=== PATIENT | male | born 1995 | race Caucasian/White ===

== ENCOUNTER 2021-06-18 18:05 | Emergency (ER) | payer OTHER, SELFPAY ==
--- NOTE | 2021-06-18 18:15 | ECG_ITS ---
Test Reason : CHEST PAIN Blood Pressure : / mmHG Vent. Rate : 059 BPM Atrial Rate : 059 BPM P-R Int : 140 ms QRS Dur : 090 ms QT Int : 408 ms P-R-T Axes : 006 060 031 degrees QTc Int : 403 ms Sinus bradycardia RSR' or QR pattern in V1 suggests right ventricular conduction delay Otherwise normal ECG Referred By: Generic ED Physician Electronically Signed By:DIEGO PANDEY MD
[2021-06-18 18:39] VITALS: BP 132/46; PULSE 70; RESP 16; TEMP 36.4; O2SAT 97; BMI 26.5
== END 2021-06-18 21:26 | disposition left against medical advice (07) ==
PROVIDERS: Emergency Provider Emergency Medicine
DX: R07.89 Other chest pain (principal)
CPT/HCPCS: 93005; 99283

== ENCOUNTER 2022-03-12 03:51 | Emergency (ER) | payer OTHER, SELFPAY ==
[2022-03-12 04:04] VITALS: BP 134/88; PULSE 89; RESP 18; TEMP 36.8; O2SAT 97; BMI 27.2
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
[2022-03-12] MEDS: Lidocaine HCl 1 % MPF 5 ML VIAL INFILTRATI (04:34)
== END 2022-03-12 05:11 | disposition home or self-care (01) ==
PROVIDERS: Emergency Provider Internal Medicine
DX: S51.011A Laceration without foreign body of right elbow, initial encounter (principal); W25.XXXA Contact with sharp glass, initial encounter; Y93.9 Activity, unspecified; Y92.9 Unspecified place or not applicable; Y99.9 Unspecified external cause status
CPT/HCPCS: 12002; 99284

== ENCOUNTER 2024-06-18 05:50 | Emergency (ER) | payer OTHER, SELFPAY ==
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
[2024-06-18 05:54] VITALS: BP 135/93; PULSE 89; RESP 18; TEMP 36.4; O2SAT 97; BMI 27.7
[2024-06-18] MEDS: Acetaminophen 325 MG TABLET 975 MG PO (06:26)
[2024-06-18] MEDS: Ibuprofen 600 MG TABLET PO (06:26)
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
[2024-06-18 11:22] VITALS: BP 127/73; PULSE 82; RESP 14; TEMP 36.6; O2SAT 98
== END 2024-06-18 11:23 | disposition home or self-care (01) ==
PROVIDERS: Emergency Provider Emergency Medicine
DX: S13.4XXA Sprain of ligaments of cervical spine, initial encounter (principal); S16.1XXA Strain of muscle, fascia and tendon at neck level, initial encounter; S80.02XA Contusion of left knee, initial encounter; V43.52XA Car driver injured in collision with other type car in traffic accident, initial encounter; W22.12XA Striking against or struck by front passenger side automobile airbag, initial encounter; M25.512 Pain in left shoulder; M54.2 Cervicalgia; M25.562 Pain in left knee; Y92.413 State road as the place of occurrence of the external cause; Y93.9 Activity, unspecified; Y99.9 Unspecified external cause status; F12.90 Cannabis use, unspecified, uncomplicated
CPT/HCPCS: 70450; 72125; 73030; 73562; 99284

== ENCOUNTER 2024-12-13 04:24 | Emergency (ER) | payer SELFPAY ==
--- NOTE | 2024-12-13 | ECG_ITS ---
Test Reason : CP Blood Pressure : */* mmHG Vent. Rate : 88 BPM Atrial Rate : 88 BPM P-R Int : 138 ms QRS Dur : 92 ms QT Int : 368 ms P-R-T Axes : 40 31 4 degrees QTcB Int : 445 ms Normal sinus rhythm Normal ECG When compared with ECG of 18-Jun-2021 18:18, Vent. rate has increased by 29 bpm Referred By: Generic ED Physician Electronically Signed By: AYO ZEPEDA MD
--- NOTE | ~2024-12-13 | XR_ITS ---
CLINICAL HISTORY: cp 1 view chest x-ray Comparison: None Findings: No consolidation or effusion. Heart size is normal. No acute fracture. IMPRESSION: No acute cardiopulmonary abnormality. This document has been electronically signed by: Elvin Hernández on 12/13/2024 05:49:44
[2024-12-13 05:30] LABS: MANUAL DIFF FLAG NO
[2024-12-13 05:43] LABS: Alanine Aminotransferase 105 U/L (0-40); Albumin Level 4.4 g/dL (3.5-5.0); Alkaline Phosphatase 87 U/L (39-117); Anion Gap 17 (12-20); Aspartate Amino Transferase 67 U/L (5-37); Bilirubin Total 0.3 mg/dL (0.0-1.0); Blood Urea Nitrogen 8 mg/dL (9-16); Calcium 8.8 mg/dL (8.4-10.2); Carbon Dioxide 20 mmol/L (22-29); Chloride 107 mmol/L (96-108); Estimated Glomerular Filt Rate > 60; Glucose Random 117 mg/dL (60-115); Potassium 3.8 mmol/L (3.3-5.1); Sodium 140 mmol/L (135-145); Total Protein 8.2 g/dL (6.5-8.0); Troponin-I High Sensitivity < 2.7 ng/L (<3.5-35.0)
[2024-12-13 05:46] LABS: Influenza A PCR NEGATIVE (Negative); Influenza B PCR NEGATIVE (Negative); Resp Syncy Virus RNA Qual PCR NEGATIVE (Negative); SARS COV2 PCR INHOUSE NEGATIVE (Negative)
[2024-12-13 05:50] LABS: Basophils Percent Auto 0.4 % (0-2); Eosinophils Absolute Auto 0.1 X10*3/uL (0.0-0.4); Hematocrit 40.1 % (42.0-52.0); Hemoglobin 14.3 g/dl (14.0-18.0); Imm Gran Abs Auto 0.02 X10*3/uL (0.00-0.03); Imm Gran Pct Auto 0.3 % (0.0-0.4); Lymphocytes Absolute Auto 2.4 X10*3/uL (1.2-4.9); Lymphocytes Percent Auto 34.4 % (20-40); Mean Corpuscular HGB Conc 35.7 g/dl (31.0-36.0); Mean Corpuscular Hemoglobin 32.1 pg (27.0-33.0); Mean Corpuscular Volume 89.9 fL (80.0-98.0); Mean Platelet Volume 10.1 fL (9.4-12.4); Monocytes Absolute Auto 0.6 X10*3/uL (0.1-1.2); Monocytes Percent Auto 8.3 % (2-11); Neutrophils Absolute Auto 3.9 x10*3/uL (2.0-8.3); Neutrophils Percent Auto 55.6 % (45-73); Platelet Count 230 X10*3/uL (160-400); Red Blood Count 4.46 X10*6/uL (4.60-5.80); Red Cell Distribution Width 12.4 % (11.0-16.0)
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
[2024-12-13 06:26] VITALS: BP 130/91; PULSE 75; RESP 20; TEMP 36.7; O2SAT 99
--- NOTE | 2024-12-13 06:51 | ED_ITS ---
HPI - Chest Pain General Chief Complaint: Chest Pain Stated Complaint: chest pain Time Seen by Provider: 12/13/24 06:47 Source: patient and old records reviewed Mode of arrival: ambulatory Limitations: no limitations History of Present Illness ED Provider: DIEGO GOLDMAN narrative: 29 yo male with PMH of costochondritis reports 3 days of intermittent chest wall pain hurts to move and touch. No cough, URI, dyspnea, no nausea. [place] off and weak tonight. Has had costochondritis in the past. He has no fevers, IVDA hx, he has not traveled or had a procedure. He does have a PCP. No prior hx of CAD. He has not taken any medications for it. MD complaint: chest pain Onset (ago): day(s) (3) Timing of current episode: episodic Prior episodes: Yes Onset: during rest Pain location: substernal Pain radiation: none Severity: moderate Quality: aching Relieving factors: nothing Exacerbating factors: palpation and movement Context: other Treatment prior to arrival: none Related Data Previous Rx's ?Medication ?Instructions ?Recorded polymyxin B sulfate 10,000 1 drp ophthalmic (eye) QID 5 days 02/01/23 unit-trimethoprim 1 mg/mL eye drops #10 mL acetaminophen 500 mg tablet 500 - 1,000 mg (1 - 2 x 500 mg) PO 06/18/24 (Tylenol Extra Strength) QID PRN pain #30 tabs cyclobenzaprine 10 mg tablet 10 mg PO TID PRN muscle spasm #12 06/18/24 tabs ibuprofen 600 mg tablet 600 mg PO Q6H PRN pain #30 tabs 06/18/24 lidocaine 4 % topical patch 1 patch topical DAILY #30 ea 06/18/24 cyclobenzaprine 10 mg tablet 10 mg PO TID PRN muscle spasm #20 12/13/24 tabs Allergies Allergy/AdvReac Type Severity Reaction Status Date / Time No Known Allergies Allergy Verified 06/18/24 05:58 [No Known Allergies*] Review of Systems 2 Review of Systems: Constitutional : No Weight loss, No Fever, No Chills ENT/Mouth : No sore throat, No Rhinorrhea Eyes: No Eye Pain, No Swelling Cardiovascular : pos Chest Pain, no SOB, no Dyspnea on Exertion, No Orthopnea, No Edema, No Palpitations Respiratory : No Cough, No Sputum Gastrointestinal : no Nausea, No Vomiting, No Diarrhea, No abdominal Pain, No Hematochezia, No Melena Genitourinary : No Dysuria, No Urinary Frequency Musculoskeletal : No joint pain, No Myalgias, No Joint Swelling Skin : No Skin Lesions, No rash Neuro : No Weakness, No Numbness, pos Dizziness, No Headache All other systems reviewed and are negative [facility] Past Medical History Attestation statement: The following information was validated with the patient. Source: old records reviewed Medical History Acute costochondritis Social History Social History Alcohol intake: current Alcohol intake frequency: holidays/special occasions only Smoked in Last 30 Days: No Use of substances other than those prescribed or required for medical reasons: Yes Substance Use Type: Marijuana Advance Directives: No Advance Directives Information Provided: Yes Do you have a plan to hurt others: No Plan Physical Exam 2 Vital Signs: Vital Signs: Last Vital Signs Temp 98.0 F 12/13/24 06:26 Pulse 75 12/13/24 06:26 Resp 20 12/13/24 06:26 BP 130/91 H 12/13/24 06:26 Pulse Ox 99 12/13/24 06:26 O2 Del Method Room Air 12/13/24 06:26 Appearance: Alert. Oriented X3. No acute distress. Eyes: Pupils equal, round and reactive to light. ENT: Pharynx normal. Neck: Normal inspection. Neck supple. CVS: Normal heart rate and rhythm. Pulses normal. Chest wall: ttp along costochondral border Respiratory: No respiratory distress. Breath sounds normal. Abdomen: Soft and nontender. Skin: Skin warm and dry. Normal skin color. Normal skin turgor. Extremities: No lower extremity edema. No calf ttp Neuro: Oriented X 3. No motor deficit. No sensory deficit. CN2-12 intact Medical Decision Making Medical Decision Making MDM Narrative: 29 yo male with PMH of costochrondritis who presents with reproduceable CWP x 3 days. NO travel, no URI symptoms, PERC negative, distal pulses intact at this time seems MSK in nature - doubt VTE, normal pulses and resting comfortably doubt dissection - at this time labs, EKG, trop, CXR if negative stable for DC Differential Diagnosis Differential Diagnoses: The differential diagnosis associated with the presentation includes MSk pain, costochondritis, atypical chest pain Admission/Observation Consideration of admission/observation: Escalation of care including admission/observation considered work up negative stable for DC Lab Data MDM Lab Attestation statement: I reviewed the patient's lab results. mild bump in LFTs 12/13/24 04:28 12/13/24 04:28 Labs: Lab Results 12/13/24 Range/Units 04:28 WBC 7.0 (4.8-10.8) X10*3/uL RBC 4.46 L (4.60-5.80) X10*6/uL Hgb 14.3 (14.0-18.0) g/dl Hct 40.1 L (42.0-52.0) % MCV 89.9 (80.0-98.0) fL MCH 32.1 (27.0-33.0) pg MCHC 35.7 (31.0-36.0) g/dl RDW 12.4 (11.0-16.0) % Plt Count 230 (160-400) X10*3/uL MPV 10.1 (9.4-12.4) fL Immature Gran % (Auto) 0.3 (0.0-0.4) % Neut % (Auto) 55.6 (45-73) % Lymph % (Auto) 34.4 (20-40) % [place] % (Auto) 8.3 (2-11) % Eos % (Auto) 1.0 (0-4) % Baso % (Auto) 0.4 (0-2) % Lymph # (Auto) 2.4 (1.2-4.9) X10*3/uL [place] # (Auto) 0.6 (0.1-1.2) X10*3/uL Eos # (Auto) 0.1 (0.0-0.4) X10*3/uL Baso # (Auto) 0.0 (0.0-0.2) X10*3/uL Abs Immat Gran (auto) 0.02 (0.00-0.03) X10*3/uL Absolute Neuts (auto) 3.9 (2.0-8.3) x10*3/uL Absolute Nucleated RBC 0.000 (0.0-0.012) X10*3/uL Nucleated RBC % (auto) 0.0 (0.0-0.2) /100WBC Sodium 140 (135-145) mmol/L Potassium 3.8 (3.3-5.1) mmol/L Chloride 107 (96-108) mmol/L Carbon Dioxide 20 L (22-29) mmol/L Anion Gap 17 (12-20) BUN 8 L (9-16) mg/dL Creatinine 0.72 (0.5-1.4) mg/dL Estim Creat Clear Calc TNP Estimated GFR > 60 Random Glucose 117 H (60-115) mg/dL Calcium 8.8 (8.4-10.2) mg/dL Total Bilirubin 0.3 (0.0-1.0) mg/dL AST 67 H (5-37) U/L ALT 105 H (0-40) U/L Alkaline Phosphatase 87 (39-117) U/L Troponin I High Sens < 2.7 (<3.5-35.0) ng/L Total Protein 8.2 H (6.5-8.0) g/dL Albumin 4.4 (3.5-5.0) g/dL Influenza Type A (PCR) NEGATIVE (Negative) Influenza Type B (PCR) NEGATIVE (Negative) RSV RNA Qual (PCR) NEGATIVE (Negative) SARS-CoV-2 RNA (RT-PCR) NEGATIVE (Negative) Independent Interpretation I performed an independent interpretation of an: EKG and Plain X-Ray (normal ) Interpretation: Rate: 88 Rhythm: NSR [place]: normal Normal P waves. Normal BRO. Normal QRS complex. ST T wave : normal no JOSE, inverted t wave III qTC: 445 prior studies: no acute ischemia The study has been interpreted contemporaneously by me. . Radiology Impression Discussion of test interpretation with radiology: I have reviewed the radiologist's reading. External Record Review External record reviewed: Outpatient record Prescription Management I considered prescription management with: Other Discharge Plan Discharge Clinical Impression: Acute costochondritis Patient Disposition: Home, Self-Care Instructions: Costochondritis (ED) Additional Instructions: chest xray normal today no mass seen - last possible nodule was seen on remote shoulder xray but then not on repeat imaging. can repeat a chest xray in 6 months your labs and EKG are reassuring your liver enzymes are mildly bumped this is likely related to fatty liver you should repeat them with your doctor in 2 weeks return for any worsening symptoms or concerns. rest and stay hydrated Prescriptions: New cyclobenzaprine 10 mg tablet 10 mg PO TID PRN (Reason: muscle spasm) Qty: 20 0RF No Action lidocaine 4 % adhesive patch,medicated 1 patch topical DAILY Qty: 30 0RF cyclobenzaprine 10 mg tablet 10 mg PO TID PRN (Reason: muscle spasm) Qty: 12 0RF ibuprofen 600 mg tablet 600 mg PO Q6H PRN (Reason: pain) Qty: 30 0RF acetaminophen [Tylenol Extra Strength] 500 mg tablet 500 - 1,000 mg PO QID PRN (Reason: pain) Qty: 30 0RF polymyxin B sulf-trimethoprim 10,000 unit- 1 mg/mL drops 1 drp ophthalmic (eye) QID 5 Days Qty: 10 0RF Rx Instructions: while awake; do not exceed 6 doses in 24 hours Stand Alone Forms: Work/School Release Print Language: Surinamese
[2024-12-13 07:47] VITALS: BP 113/72; PULSE 68; RESP 12; TEMP 36.2; O2SAT 92
== END 2024-12-13 07:50 | disposition home or self-care (01) ==
PROVIDERS: Emergency Provider Emergency Medicine
DX: M94.0 Chondrocostal junction syndrome [Tietze] (principal); Z03.818 Encounter for observation for suspected exposure to other biological agents ruled out
CPT/HCPCS: 0241U; 71045; 80053; 84484; 85025; 93005; 99283; 99284

== ENCOUNTER → 2024-12-13 04:26 | Outpatient (BNV) | payer SELFPAY | PROVIDERS: Emergency Provider Emergency Medicine; Visit Provider Internal Medicine Cardiovascular Disease | DX: R07.9 Chest pain, unspecified (principal) | CPT/HCPCS: 93010 ==

== ENCOUNTER → 2024-12-13 04:30 | Outpatient (BNV) | payer SELFPAY | PROVIDERS: Emergency Provider Emergency Medicine; Visit Provider Radiology Vascular & Interventional Radiology | DX: R07.9 Chest pain, unspecified (principal) | CPT/HCPCS: 71045 ==